=== PATIENT | female | born 1965 | race Caucasian/White ===

== ENCOUNTER → 2017-08-24 | Outpatient (CLI) | payer OTHER | LOC: FIMAGING 16:04 | PROVIDERS: ATTEND Internal Medicine | DX: Z12.31 Encounter for screening mammogram for malignant neoplasm of breast (principal); Z80.3 Family history of malignant neoplasm of breast | CPT/HCPCS: G0202 ==

== ENCOUNTER 2018-07-28 11:10 | Emergency (ER) | payer OTHER ==
--- NOTE | 2018-07-28 11:43 | EDPHY ---
H & P Time Seen by Provider: 07/28/18 11:42 HPI/ROS: Chief complaint. Abdominal pain, vomit HPI. 52-year-old female with upper abdominal pain and nausea vomiting that began last night. She has pain and pressure under her ribs with possibly radiation to her back. No diarrhea. No recent bad food or travel. However her daughter has recently had a stomach virus in the last several days. No chest pain or shortness of breath. No urinary symptoms. No low abdominal pain. No previous surgery. No fever. ROS 10 systems were reviewed and negative with the exception of the elements mentioned in the history of present illness Past Medical/Surgical History: Carpal tunnel syndrome status post surgery Social History: , nonsmoker, no alcohol Smoking Status: Never smoked Physical Exam: General Appearance: Alert well-developed female moderate distress vital signs significant for heart rate of 114 Eyes: Pupils equal and round no pallor or injection. ENT, Mouth: Mucous membranes are moist. Respiratory: There are no retractions, lungs are clear to auscultation. Cardiovascular: Regular rate and rhythm. Gastrointestinal: Abdomen is soft with tenderness in the right upper quadrant as well as epigastrium and some in the left upper quadrant. No mid or lower abdominal tenderness. No tenderness in the right lower quadrant or at McBurney' s point. Normal bowel sounds. No masses Neurological: Awake and alert, sensory and motor exams grossly normal. Skin: Warm and dry, no rashes. Musculoskeletal: Neck is supple nontender. Extremities symmetrical, full range of motion. Psychiatric: Patient is oriented X 3, there is no agitation. Constitutional: Initial Vital Signs Temperature (C) 36.4 C 07/28/18 11:13 Heart Rate 114 H 07/28/18 11:13 Respiratory Rate 18 07/28/18 11:13 Blood Pressure 118/83 H 07/28/18 11:13 O2 Sat (%) 98 07/28/18 11:13 O2 Delivery Mode Room Air Allergies/Adverse Reactions: amoxicillin [From Augmentin] Allergy (Verified 07/28/18 11:12) clavulanic acid [From Augmentin] Allergy (Verified 07/28/18 11:12) levofloxacin [From Levaquin] Allergy (Verified 07/28/18 11:12) Home Medications: Medication Instructions Recorded Escitalopram Oxalate 07/28/18 Norvasc 5 mg (*) 07/28/18 Promethazine HCl [Phenergan 25mg 25 mg PO Q4-8PRN PRN #10 tab 07/28/18 (*)] Medical Decision Making - Diagnostics Imaging Results: Imaging Impressions Abdomen Ultrasound 07/28/18 11:56 Impression: 1. Negative right upper quadrant sonogram. Results called to Dr. Tony Olson at 2:15 PM. Gallbladder ultrasound reviewed by me and discussed Dr. Ruiz is normal Procedures: IV normal saline. Phenergan IV ED Course/Re-evaluation: Re-evaluation 1:20 p.m.. Patient is stable and improved. Taking ice chips. Awaiting ultrasound. A 2nd bag of saline is ordered Re-evaluation 2:30 p.m. Patient is much improved. No nausea or vomiting. Abdominal pain resolved We will try GI cocktail--patient did not like The GI cocktail after 1 sip re-evaluation again at 3:05 p.m. Patient is stable. The patient, her , and I discussed imaging and lab results. We discussed treatment plan including criteria for return importance of follow-up further evaluation. She expresses understanding and. Differential Diagnosis: I considered gastritis, pancreatitis, gallbladder disease. I suspect that this is stomach irritation from vomiting from a viral syndrome. Her daughter had similar symptoms in the last couple days - Data Points Laboratory Results: Laboratory Results 07/28/18 11:24 07/28/18 11:24 07/28/18 07/28/18 11:24 11:24 WBC 8.08 10^3/uL 10^3/uL (3.80-9.50) RBC 4.56 10^6/uL 10^6/uL (4.18-5.33) Hgb 14.6 g/dL g/dL (12.6-16.3) Hct 41.2 % % (38.0-47.0) MCV 90.4 fL fL (81.5-99.8) MCH 32.0 pg pg (27.9-34.1) MCHC 35.4 g/dL g/dL (32.4-36.7) RDW 11.9 % % (11.5-15.2) Plt Count 275 10^3/uL 10^3/uL (150-400) MPV 9.2 fL fL (8.7-11.7) Neut % (Auto) Not Reported Lymph % (Auto) Not Reported Stephens % (Auto) Not Reported Eos % (Auto) Not Reported Baso % (Auto) Not Reported Nucleat RBC Rel Count Not Reported Absolute Neuts (auto) Not Reported Absolute Lymphs (auto) Not Reported Absolute Monos (auto) Not Reported Absolute Eos (auto) Not Reported Absolute Basos (auto) Not Reported Absolute Nucleated RBC Not Reported Immature Gran % Not Reported Seg Neutrophils % 73.7 % % Band Neutrophils % 21.2 % % Lymphocytes % 1.0 % % Monocytes % 4.1 % % Eosinophils % 0.0 % % Basophils % 0.0 % % Metamyelocytes % 0.0 % % Myelocytes % 0.0 % % Promyelocytes % 0.0 % % Blast Cells % 0.0 % % Immature Gran # Not Reported Absolute Seg Neuts 5.95 10^/uL 10^/uL (1.70-6.50) Absolute Band Neuts 1.71 10^3/uL H 10^3/uL (0.00-0.70) Absolute Lymphocytes 0.08 10^3/uL L 10^3/uL (1.00-3.00) Absolute Monocytes 0.33 10^3/uL 10^3/uL (0.30-0.80) Absolute Eosinophils 0.00 10^3/uL L 10^3/uL (0.03-0.40) Absolute Basophils 0.00 10^3/uL L 10^3/uL (0.02-0.10) Absolute Metamyelocyte 0.00 10^3/mL 10^3/mL (0.00-0.00) Absolute Myelocytes 0.00 10^3/mL 10^3/mL (0.00-0.00) Absolute Promyelocytes 0.00 10^3/uL 10^3/uL (0.00-0.00) Absolute Plasma Cells 0.00 10^3/uL 10^3/uL (0.00-0.00) Absolute Blast Cells 0.00 10^3/uL 10^3/uL (0.00-0.00) Plasma Cells % 0.0 % % Platelet Estimate ADEQUATE (ADEQ) Sodium 138 mEq/L mEq/L (135-145) Potassium 3.8 mEq/L mEq/L (3.3-5.0) Chloride 101 mEq/L mEq/L (97-110) Carbon Dioxide 25 mEq/l mEq/l (22-31) Anion Gap 12 mEq/L mEq/L (8-16) BUN 9 mg/dL mg/dL (7-23) Creatinine 0.5 mg/dL L mg/dL (0.6-1.0) Estimated GFR > 60 Glucose 136 mg/dL H mg/dL (70-100) Calcium 9.5 mg/dL mg/dL (8.5-10.4) Total Bilirubin 0.9 mg/dL mg/dL (0.1-1.4) Conjugated Bilirubin 0.1 mg/dL mg/dL (0.0-0.5) Unconjugated Bilirubin 0.8 mg/dL mg/dL (0.0-1.1) AST 31 IU/L IU/L (14-46) ALT 36 IU/L IU/L (9-52) Alkaline Phosphatase 47 IU/L IU/L (38-126) Total Protein 7.0 g/dL g/dL (6.3-8.2) Albumin 4.5 g/dL g/dL (3.5-5.0) Lipase 45 IU/L IU/L (23-300) Medications Given: Discontinued Medications Al Hydroxide/Mg Hydroxide (Maalox Susp) 30 ml PO ONCE ONE Stop: 07/28/18 14:38 Last Admin: 07/28/18 14:54 Dose: 30 ml Sodium Chloride (Ns) 1,000 mls @ 0 mls/hr IV EDNOW ONE; Wide Open PRN Reason: Protocol Stop: 07/28/18 11:57 Last Admin: 07/28/18 12:18 Dose: 1,000 mls Sodium Chloride (Ns) 1,000 mls @ 0 mls/hr IV EDNOW ONE; Wide Open PRN Reason: Protocol Stop: 07/28/18 13:27 Last Admin: 07/28/18 13:30 Dose: 1,000 mls Lidocaine (Lidocaine 2% Viscous) 15 ml PO ONCE ONE Stop: 07/28/18 14:38 Last Admin: 07/28/18 14:54 Dose: 15 ml Promethazine HCl (Phenergan) 12.5 mg IVP EDNOW ONE Stop: 07/28/18 11:57 Last Admin: 07/28/18 12:17 Dose: 12.5 mg Departure - Departure Disposition: Home, Routine, Self-Care Clinical Impression: Abdominal pain Qualifiers: Abdominal location: epigastric Qualified Code(s): R10.13 - Epigastric pain Condition: Good Instructions: Acute Abdominal Pain (ED) Additional Instructions: Frequent, small sips while nauseated Gradual diet advancement Phenergan as needed for nausea vomiting Return for worsening symptoms Recheck in 1 day if not improving Referrals: Kyung Farzier MD [Primary Care Provider] - 1 day, if not improved Prescriptions: Promethazine HCl [Phenergan 25mg (*)] 25 mg PO Q4-8PRN PRN #10 tab PRN Reason: Nausea/Vomiting, Use 1st
[2018-07-28] MEDS ORDERED: PROMETHAZINE HCL 25 MG/ML INJ IVP ONE (11:56)
[2018-07-28] MEDS ORDERED: NS 1,000 ML IV ONE ×2 (11:56→13:26)
[2018-07-28 12:05] LABS: PLATELET COUNT 275 10^3/uL (150-400)
[2018-07-28] MEDS ORDERED: MAG HYDROX/AL HYDROX/SIMETH 30 ML UDCUP PO ONE (14:37)
[2018-07-28] MEDS ORDERED: LIDOCAINE 2% VISCOUS 15 ML UDCUP PO ONE (14:37)
[2018-07-28 15:20] VITALS: BP 118/73
== END 2018-07-28 15:30 | disposition home or self-care (01) ==
DX: R10.13 Epigastric pain (principal); R11.10 Vomiting, unspecified; E86.9 Volume depletion, unspecified
CPT/HCPCS: 96374; J2550

== ENCOUNTER → 2018-09-02 | Outpatient (CLI) | payer OTHER | LOC: FIMAGING 15:28 | PROVIDERS: ATTEND Internal Medicine | DX: Z12.31 Encounter for screening mammogram for malignant neoplasm of breast (principal); Z80.3 Family history of malignant neoplasm of breast ==